=== PATIENT | male | born 1980 | race Caucasian/White ===

== ENCOUNTER 2017-10-17 05:33 | Emergency (ER) | payer MEDICAID ==
[~2017-10-17] VITALS: Ht 177.8 cm; Wt 114.0 kg
[2017-10-17 08:28] VITALS: BP 128/84
== END 2017-10-17 08:35 | disposition home or self-care (01) ==
LOC: ER 05:44
DX: R45.851 Suicidal ideations (principal); I10 Essential (primary) hypertension; F20.9 Schizophrenia, unspecified; F32.9 Major depressive disorder, single episode, unspecified
CPT/HCPCS: 99284

== ENCOUNTER 2017-11-07 20:39 | Emergency (ER) | payer MEDICAID ==
[~2017-11-07] VITALS: Ht 180.3 cm; Wt 96.0 kg
[2017-11-07 22:06] LABS: BASOPHILS % 0.5 % (0.0-2.0); EOSINOPHILS % 0.5 % (0.0-5.0); HEMATOCRIT. 42.2 % (42.0-52.0); LYMPHOCYTES % 15.7 % (20.0-50.0); MEAN CORPUSCULAR HEMOGLOBIN 27.5 pg (28.0-32.0); MEAN CORPUSCULAR VOLUME 82.9 fL (80.0-94.0); MEAN PLATELET VOLUME 8.3 fl (7.4-10.4); MONOCYTES % 9.3 % (2.0-8.0); PLATELET 246 x1000/uL (130-400); RED BLOOD CELL COUNT 5.09 mill/uL (4.7-6.1); RED CELL DISTRIBUTION WIDTH 14.5 % (11.6-14.6)
[2017-11-07 22:08] LABS: CHLORIDE 111 mEq/L (98-107)
[2017-11-07 22:20] LABS: ETHANOL BLOOD < 10 mg/dL
[2017-11-08 00:08] LABS: CLARITY URINE CLEAR (CLEAR); COLOR URINE YELLOW (YELLOW); KETONES URINE 1+ (NEGATIVE); LEUKOCYTE ESTERASE URINE NEGATIVE (NEGATIVE); NITRITE URINE NEGATIVE (NEGATIVE); OCCULT BLOOD URINE NEGATIVE (NEGATIVE); PROTEIN URINE TRACE (NEGATIVE); SPECIFIC GRAVITY URINE 1.026 (1.005-1.030)
[2017-11-08 00:21] LABS: *AMPHETAMINES SCREEN URINE NEGATIVE (NEGATIVE); *BARBITURATES SCREEN URINE NEGATIVE (NEGATIVE); *BENZODIAZEPINES SCREEN URINE NEGATIVE (NEGATIVE); *COCAINE SCREEN URINE NEGATIVE (NEGATIVE)
[2017-11-08 00:22] LABS: CANNABINOID URINE SCREEN NEGATIVE (NEGATIVE); METHADONE URINE SCREEN NEGATIVE (NEGATIVE); OPIATES URINE SCREEN NEGATIVE (NEGATIVE); PHENCYCLIDINE URINE SCREEN NEGATIVE (NEGATIVE)
[2017-11-08] MEDS ORDERED: LORAZEPAM 2MG/ML CPJ IM ONE (01:45)
[2017-11-08] MEDS ORDERED: OLANZAPINE 10 MG/VIAL IM ONE (01:45)
[2017-11-08 13:04] VITALS: BP 128/70
== END 2017-11-08 13:07 | disposition home or self-care (01) ==
LOC: ER 20:39
DX: R45.851 Suicidal ideations (principal); F91.8 Other conduct disorders; F33.3 Major depressive disorder, recurrent, severe with psychotic symptoms; R03.0 Elevated blood-pressure reading, without diagnosis of hypertension; Z78.1 Physical restraint status; F20.9 Schizophrenia, unspecified; F43.10 Post-traumatic stress disorder, unspecified; Z91.14 Patient's other noncompliance with medication regimen
CPT/HCPCS: 36415; 80048; 80305; 80307; 80329; 81003; 82962; 85025; 96372; 99284; G0482; J2060; J3490; Z7610